=== PATIENT | female | born 1970 | race Caucasian/White ===

== ENCOUNTER 2021-11-11 10:33 | Outpatient (CLI) | payer OTHER, SELFPAY ==
--- NOTE | 2021-11-11 10:30 | RT.EKG_ITS ---
APPROVED REPORT Exam: Resting ECG Reason for Exam: PALPACATIONS Patient Location: O HR:81 bpm ECG Measurements Heart Rate 81 AXIS DE 150 P 54 QRSd 96 QRS 34 QT 371 T 56 QTc 430 Conclusion Sinus rhythm...normal P axis, V-rate 60- 99 Normal Electrocardiogram
== END 2021-11-11 10:34 | disposition home or self-care (01) ==
PROVIDERS: Visit Provider Nurse Practitioner Family
DX: R07.9 Chest pain, unspecified (principal); R00.2 Palpitations
CPT/HCPCS: 93010

== ENCOUNTER 2021-11-11 16:06 | Outpatient (REF) | payer OTHER, SELFPAY ==
[2021-11-11 16:58] LABS: HCT 44.2 % (36.0-46.0); MCHC 31.7 % (32.0-36.0); MCV 91.5 fL (80-95); MPV 11.4 fL (8.0-11.0); Platelet Count 378 10^3/uL (130-400); RBC 4.83 10^6/uL (3.93-5.22); RDW 13.2 % (11.7-14.6); RDW-SD 44.2 fL; WBC 12.87 10^3/uL (4.4-10.8)
[2021-11-11 17:16] LABS: ALT 33 U/L (14-59); AST 17 U/L (15-37); Alkaline Phosphatase 70 U/L (46-116); BUN 15 mg/dL (7-18); Bilirubin, Total 0.3 mg/dL (0.2-1.0); CREATININE 0.7 mg/dL (0.55-1.02); Calcium 9.2 mg/dL (8.5-10.1); Chloride 106 mmol/L (98-107); Cholesterol 287 mg/dL (<200); Glucose 74 mg/dL (74-106); HDL Cholesterol 40 mg/dL (40-60); Potassium 4.4 mmol/L (3.5-5.1); Sodium 142 mmol/L (136-145); Total Protein 7.3 g/dL (6.4-8.2); Triglyceride 574 mg/dL (<150)
[2021-11-11 17:33] LABS: Hemoglobin A1C 6.3 % (<5.7)
[2021-11-11 19:10] LABS: LDL CHOLESTEROL 165 mg/dL (<100)
== END 2021-11-11 16:07 | disposition home or self-care (01) ==
LOC: LBN 16:06
PROVIDERS: Visit Provider Nurse Practitioner Family
DX: R00.2 Palpitations (principal); I10 Essential (primary) hypertension
CPT/HCPCS: 80053; 80061; 83721; 85027; 83036; 84443

== ENCOUNTER 2021-12-01 04:01 | Outpatient (RCR) | payer OTHER, SELFPAY ==
--- NOTE | 2021-12-01 16:30 | HOLTER_ITS ---
APPROVED REPORT Conclusion This is a 48-hour Holter monitor ordered for palpitations Predominant rhythm was sinus with an average heart rate of 84. Minimum was 56, maximum 117 There were very rare atrial and ventricular ectopic beats There is no atrial fibrillation, no high-grade AV block, no pauses greater than 3 seconds No patient symptoms were reported
== END 2021-12-07 23:59 | disposition home or self-care (01) ==
LOC: RT 04:01
PROVIDERS: Visit Provider Nurse Practitioner Family
DX: R00.2 Palpitations (principal)
CPT/HCPCS: 93225; 93226

== ENCOUNTER → 2022-02-07 03:00 | Outpatient (CLI) | payer OTHER, SELFPAY ==
--- NOTE | 2022-02-07 09:00 | DI.US_ITS ---
Exam(s) US HERNIA US PELVIS TRANSVAGINAL EXAM: US PELVIS TRANSVAGINAL CLINICAL HISTORY: POSTMENOPAUSAL BLEEDING, N95.0 TECHNIQUE: Ultrasound performed using standard protocol. COMPARISON: US US HERNIA from 02/07/2022 FINDINGS: Pelvic ultrasound was performed trans abdominally and transvaginally. Uterus measures 8.6 x 3.1 x 4 cm in diameter. There is an apparent 8 millimeter anterior midbody uterine fibroid. Endometrial str ipe is 3-4 millimeters in thickness and appears homogeneous. Limited scanning of the kidneys is unremarkable. The ovaries are nonvisualized. No free fluid in the cul-de-sac. The anterior abdominal wall was also scanned for suspected ventral and or umbilical hernia. There is no evidence of hernia in the region surveyed. IMPRESSION: Small uterine fibroid, otherwise negative pelvic ultrasound, ovaries nonvisualized. No evidence of abdominal wall hernia. DATA REPOSITORY:
--- NOTE | 2022-02-07 10:34 | DI.MAMMO_ITS ---
Exam(s) MAMMO SCREENING EXAM: MAMMO SCREENING CLINICAL HISTORY: SCREENING, Z12.39, Z12.31 TECHNIQUE: Mammograms were interpreted according to the usual protocol including computer analysis w [facility] CAD system, tomosynthesis and C-view imaging. COMPARISON: FINDINGS: No prior imaging available for comparison. The breasts are of moderate density with fairly symmetric al distribution of fibroglandular tissue. No dominant mass or clumped microcalcification is identifi ed in either breast. IMPRESSION: No specific evidence of malignancy at this time. Routine screening examinations are suggested at yea rly intervals in this age group according to the ACS ACR guidelines. BI-RADS Category 1 - Negative Breast Density - Category B - Scattered areas of fibroglandular density
== END ==
PROVIDERS: PCP Nurse Practitioner Family; Visit Provider Nurse Practitioner Family
DX: Z12.31 Encounter for screening mammogram for malignant neoplasm of breast (principal); N95.0 Postmenopausal bleeding; D25.9 Leiomyoma of uterus, unspecified; M62.08 Separation of muscle (nontraumatic), other site; R10.2 Pelvic and perineal pain
CPT/HCPCS: 76857; 77063; 77067; 76830; 76856

== ENCOUNTER 2022-02-07 03:54 | Outpatient (CLI) | payer OTHER, SELFPAY ==
[2022-02-07 10:56] LABS: Calculated LDL 122 mg/dL (<100); Cholesterol 235 mg/dL (<200); HDL Cholesterol 42 mg/dL (40-60); Triglyceride 359 mg/dL (<150)
== END 2022-02-07 03:55 | disposition home or self-care (01) ==
LOC: LBO 03:54
PROVIDERS: PCP Nurse Practitioner Family; Visit Provider Nurse Practitioner Family
DX: E78.5 Hyperlipidemia, unspecified (principal)
CPT/HCPCS: 36415; 80061

== ENCOUNTER 2022-04-23 14:51 | Outpatient (REF) | payer OTHER, SELFPAY ==
--- NOTE | 2022-04-23 14:15 | ENDOMET_PTH ---
PATIENT: Arti Dinh LOC: [facility] U#:[id number] AGE/SX: 52/F ROOM: RE04/23/[address]: Traci Rey : 1970 BED: DIS: 04/23/2022 SPEC #: [id number] RECD: 04/24/22 09:11 STATUS: SUKHWINDER REQ #: [id number] ROMEL: 04/23/22 14:[address]: Traci Rey DEPT: Surgical Specimen RECD BY: Madeline Estrada ENTERED: 04/24/22 09:13 SP TYPE: Endomet OTHR DR: Jada Cheng Tissues: 1 - ENDOMETRIUM BX/CURRETTE Procedures: GROSS AND MICRO LEVEL 4 Comments: [id number]
== END 2022-04-23 14:52 | disposition home or self-care (01) ==
LOC: LBN 14:51
PROVIDERS: PCP Nurse Practitioner Family; Visit Provider Obstetrics & Gynecology Gynecology
DX: N85.8 Other specified noninflammatory disorders of uterus (principal)
CPT/HCPCS: 88305

== ENCOUNTER 2023-02-08 08:13 | Day surgery (SDC) | payer OTHER, SELFPAY ==
--- NOTE | 2023-02-07 19:28 | W.PM.DSUDISC ---
Date of service: 02/08/23 Time of Service: 10:42 Discharge Plan Disposition Patient Disposition: Home Condition: Good Discharge Details Reason For Visit: Screening colonoscopy Attending Provider: Bharat Schmitz Primary Care Provider: Jada Cheng Home Meds and New Rx's Prescriptions: Continued lisinopril-hydrochlorothiazide 20-25 mg tablet 1 tab PO DAILY Qty: 30 0RF Rx Instructions: Take 1 tab daily rosuvastatin 5 mg tablet 5 mg PO HS Discontinued bisacodyl [Dulcolax (bisacodyl)] 5 mg tablet,delayed release (DR/EC) 5 mg PO ONCE Qty: 4 0RF Rx Instructions: Take per colonoscopy instructions provided by ordering providers office polyethylene glycol 3350 17 gram/dose powder 17 g PO ONCE Qty: 238 0RF Rx Instructions: Take per colonoscopy instructions provided by ordering providers office Discharge Instructions Instructions: Colorectal Polyps (GEN) Additional Instructions: Arti, we were able to complete your colonoscopy today without any problems. The quality of your prep was outstanding. We had great visualization. I did find 1 small polyp in your rectum. I removed this completely. Otherwise your colonoscopy was totally normal. I will be in touch when I have the results of the pathology report with my recommendations. 1. If tolerated, consume a soft, low fiber diet for 1-2 days. 2. Do not drive, drink alcohol, operate machinery, make critical decisions, or do activities that require coordination or balance for 24 hours. 3. Because air was put into your colon during the procedure, expelling air from your rectum (passing gas or farting) is normal. 4. You may not have a bowel movement for 1-3 days because of the colonoscopy prep. This is normal. 5. Go directly to the emergency room if you notice any of the following: Develop chills (warm to touch), or if you have a thermometer and your temperature is above 101 Difficulty breathing or difficultly swallowing Persistent vomiting Severe abdominal pain, other than gas cramps Severe chest pain Black, tarry stools Any bleeding ? exceeding one tablespoon 6. Call your physician if the site where your intravenous was started becomes red, swollen, painful, and warm to touch. 7. Your physician has reviewed your pre-procedure medications. Please continue to take those medications as previously ordered. You will be given specific information/education regarding any changes to your medications before leaving. Activity:: Activity as Tolerated Diet:: As Tolerated Discharge Orders Discharge Orders: Discharge Order (Routine); Ordered 02/07/23 Ordered By: Bharat Schmitz DS: Diagnosis Discharge Diagnosis (1) Screening for colon cancer: Status: Acute Asessment and Plan: I will follow-up on polypectomy results
--- NOTE | 2023-02-07 19:29 | W.COLOREPORT ---
Date of service: 02/08/23 Time of Service: 10:43 Colonoscopy Report Date of procedure: 02/08/23 Pre-op diagnosis general: Screening colonoscopy Post-op diagnosis procedure note: other (Rectal polyp) Procedure: Colonoscopy with polypectomy Surgeon: Bharat Schmitz Anesthesia Type: General:No Airway Estimated blood loss (mL): 5 Pathology: other (Rectal polyp) Complications: None Disposition: same day Indications: Arti is a 52-year-old woman who needs a screening colonoscopy Prep: Miralax/Dulcolax Procedure Start Time: 10:17 Procedure End Time: 10:29 Retraction Time: 8 Findings: Single 0.25 cm rectal polyp Procedure Description: After the induction of monitored anesthetic care, and with the patient in left lateral decubitus position, I began by performing an external anorectal exam.? Perineum and skin were normal, as was the anal verge.? There was no evidence of external hemorrhoids.? Next, I performed a digital rectal exam.? I did not appreciate any abnormal findings.? Next, I advanced a colonoscope into the rectal vault.? I performed retroflexion.? There was mild perianal inflammation.? Using insufflation, I then advanced the colonoscope beyond the rectal folds and into the sigmoid colon before advancing towards the cecum.? The quality of the prep was outstanding.? The scope was noted to be in the cecum by identification of the ileocecal valve and appendiceal orifice.? I then began withdrawing the colonoscope using repeated irrigation as necessary for full evaluation of the colonic mucosa. ?Once the scope was withdrawn to the level of the rectum, great care was taken to examine portions of the rectal folds.? Finally, the scope was withdrawn and the patient was brought to the same-day surgery recovery unit as the anesthetic wore off. ?The findings and instructions were shared with the patient prior to discharge.
[2023-02-08 08:39] VITALS: BP 131/77; PULSE 70; RESP 17; TEMP 36.2; O2SAT 97
[2023-02-08] MEDS: Lactated Ringers 1,000 ML 80 ML IV (08:54)
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
[2023-02-08 09:45] VITALS: BMI 46.5
--- NOTE | 2023-02-08 10:20 | BOWEL_PTH ---
PATIENT: Arti Dinh LOC: [facility] U#:[id number] AGE/SX: 52/F ROOM: RE02/08/[address]: Bharat Schmitz MD : 1970 BED: DIS: 02/08/2023 SPEC #: [id number] RECD: 02/08/23 11:41 STATUS: SUKHWINDER RE #: [id number] ROMEL: 02/08/23 10:[address]: Bharat Schmitz DEPT: Surgical Specimen RECD BY: Idalia Romero ENTERED: 02/08/23 11:41 SP TYPE: Bowel OTHR DR: Jada Cheng Tissues: 1 - BIOPSY BOWEL Procedures: GROSS AND MICRO LEVEL 4 Comments: [id number]
[2023-02-08 10:37] VITALS: BP 99/58; PULSE 69; RESP 18; TEMP 36.6; O2SAT 93
--- NOTE | 2023-02-08 10:43 | W.ANESPOSTOP ---
Postoperative Evaluation Date, Time and Location Date Performed: 02/08/23 Time Performed: 10:43 Patient Location: Day Surgery Unit Vital Signs Most Recent Imported Vital Signs: Most Recent Vital Signs Temp Pulse Resp BP Pulse Ox 36.6 C 69 18 99/58 L 93 02/08/23 10:37 02/08/23 10:37 02/08/23 10:37 02/08/23 10:37 02/08/23 10:37 Pain Score Most Recent Pain Score: Most Recent Pain Score Pain Level 0 02/08/23 10:37 Assessment Mental Status: Awake (Alert & Oriented to Patient Baseline) Airway and Respiratory Function: Patent airway with normal (patient baseline) respiratory exam Cardiovascular Function: Hemodynamically Stable Hydration Status: Adequately Hydrated Nausea & Vomiting: No Nausea or Vomiting Pain: Pt. Denies Any Pain Peripheral Nerve Block: Patient did not receive a nerve block
[2023-02-08 11:00] VITALS: BP 141/73; PULSE 78; RESP 18; TEMP 35.8; O2SAT 97
== END 2023-02-08 11:20 | disposition home or self-care (01) ==
PROVIDERS: PCP Nurse Practitioner Family; Visit Provider Surgery
PROC: 0DJD8ZZ Inspection of Lower Intestinal Tract, Via Natural or Artificial Opening Endoscopic (ICD-10-PCS; CPT 45378; principal; 2023-02-08 10:00)
DX: Z12.11 Encounter for screening for malignant neoplasm of colon (principal); D12.8 Benign neoplasm of rectum
CPT/HCPCS: 45380; 88305

== ENCOUNTER 2023-03-08 15:44 | Outpatient (REF) | payer OTHER, SELFPAY ==
--- NOTE | 2023-03-08 09:15 | PAPFT_PTH ---
PATIENT: Arti Dinh LOC: [facility]#:[id number] AGE/SX: 52/F ROOM: RE03/08/[address]: Jada Cheng : 1970 BED: DIS: 03/08/2023 SPEC #: [id number] RECD: 03/14/23 13:39 STATUS: SUKHWINDER REQ #: [id number] ROMEL: 03/08/23 09:[address]: Jada Cheng DEPT: [facility] Cytology RECD BY: Idalia Romero Tissues: 1 - CX/ENDOCX FOR PAP SMEARS Procedures: PAP THIN PREP/UVM Screening HPV DNA PROBE Comments: [id number]
[2023-03-08 19:16] LABS: ALT 34 U/L (14-59); AST 26 U/L (15-37); Alkaline Phosphatase 64 U/L (46-116); BUN 17 mg/dL (7-18); Bilirubin, Total 0.4 mg/dL (0.2-1.0); CREATININE 0.7 mg/dL (0.55-1.02); Calcium 9.3 mg/dL (8.5-10.1); Calculated LDL 94 mg/dL (<100); Chloride 104 mmol/L (98-107); Cholesterol 199 mg/dL (<200); Glucose 105 mg/dL (74-106); HDL Cholesterol 45 mg/dL (40-60); Potassium 4.1 mmol/L (3.5-5.1); Sodium 141 mmol/L (136-145); Total Protein 7.8 g/dL (6.4-8.2); Triglyceride 301 mg/dL (<150)
[2023-03-08 19:40] LABS: Vitamin D 25 Total 18.6 ng/mL (30-100)
[2023-03-11 11:36] LABS: Hepatitis C Ab w Rflx HCV PCR Negative (Negative)
[2023-03-11 12:10] LABS: HIV-1/2 Ag & Ab Screen Negative (Negative)
== END 2023-03-08 15:45 | disposition home or self-care (01) ==
LOC: NCHCN 15:44
PROVIDERS: PCP Nurse Practitioner Family; Visit Provider Nurse Practitioner Family
DX: I10 Essential (primary) hypertension (principal); E78.5 Hyperlipidemia, unspecified; R73.03 Prediabetes
CPT/HCPCS: 80053; 80061; 82306; 86803; 87389; 88142; 83036; 87624

== ENCOUNTER 2023-05-14 16:51 | Emergency (ER) | payer OTHER, SELFPAY ==
--- NOTE | 2023-05-14 16:45 | RT.EKG_ITS ---
APPROVED REPORT Exam: Resting ECG Reason for Exam: ABD pain/diaphoresis Patient Location: E HR:81 bpm ECG Measurements Heart Rate 81 AXIS WA 144 P 45 QRSd 103 QRS 25 QT 380 T 31 QTc 442 Conclusion Sinus rhythm.. V-rate 60- [address] segment or T wave abnormalities to suggest
[2023-05-14 16:52] VITALS: BP 118/57; PULSE 83; RESP 18; TEMP 38.1; O2SAT 96
--- NOTE | 2023-05-14 17:00 | DI.RAD_ITS ---
Exam(s) XR CHEST 2V PA LATERAL EXAM: XR CHEST 2V PA LATERAL CLINICAL HISTORY: fever cough TECHNIQUE: 2D digital imaging was performed of the chest. Two images were obtained. PA and lateral views were obtained. COMPARISON: CT CT CHEST LUNG CANCER SCREEN from 03/14/2022 FINDINGS: MEDIASTINUM: Normal. HEART: Normal. PULMONARY VASCULATURE: Normal. LUNGS: Clear. PLEURAL SPACE: No pleural effusion or pneumothorax. BONE:Within normal limits for the patient's age. OTHER FINDINGS:Normal. IMPRESSION: No acute pulmonary findings. DATA REPOSITORY: RADIATION DOSE DELIVERED:
[2023-05-14] MEDS: Normal Saline 1,000 ML 1000 ML IV (17:27)
[2023-05-14] MEDS: Acetaminophen 500 MG TAB 1000 MG PO (17:27)
[2023-05-14 17:34] LABS: Abs Immature Grans 0.03 10^3/uL (0.0-0.06); Absolute Basophil Count 0.03 10^3/uL (0.0-0.2); Absolute Eosinophil Count 0.06 10^3/uL (0.0-0.7); Absolute Lymphocyte Count 1.94 10^3/uL (1.2-3.4); Basophils % 0.3; Eosinophils % 0.5; HCT 37.1 % (36.0-46.0); HGB 12.4 g/dL (11.2-15.7); Immature Grans % 0.3; Lymphocytes % 17.5; MCH 28.9 pg (27.0-33.0); MCHC 33.4 % (32.0-36.0); MCV 87 fL (80-95); MPV 10.2 fL (8.0-11.0); Monocytes % 6.8; Neutrophils % 74.6; Platelet Count 311 10^3/uL (130-400); RBC 4.29 10^6/uL (3.93-5.22); RDW 13.3 % (11.7-14.6); RDW-SD 41.4 fL; WBC 11.11 10^3/uL (4.4-10.8)
[2023-05-14 17:35] LABS: Absolute Monocyte Count 0.76 10^3/uL (0.1-0.8); Absolute Neutrophil Count 8.29 10^3/uL (1.2-6.7)
[2023-05-14 17:46] LABS: ALT 23 U/L (14-59); AST 16 U/L (15-37); Albumin 3.2 g/dL (3.4-5.0); Alkaline Phosphatase 86 U/L (46-116); Anion Gap 12.8 mmol/L (3-11); BUN 13 mg/dL (7-18); Bilirubin, Total 0.7 mg/dL (0.2-1.0); CO2 24.2 mmol/L (21.0-32.0); CREATININE 0.8 mg/dL (0.55-1.02); Calcium 8.9 mg/dL (8.5-10.1); Chloride 96 mmol/L (98-107); Estimated GFR 88.05 (mL/min/1.73m2); Glucose 120 mg/dL (74-106); Potassium 3.2 mmol/L (3.5-5.1); Sodium 133 mmol/L (136-145)
[2023-05-14 18:18] LABS: COVID-19 PCR Negative (Negative); Influenza A PCR Negative (Negative); Influenza B PCR Negative (Negative); RSV PCR Negative (Negative)
[2023-05-14 18:21] LABS: Source Nasopharynx
--- NOTE | 2023-05-14 19:39 | DI.VRAD_ITS ---
PROCEDURE INFORMATION: Exam: XR Chest Exam date and time: 05/14/2023 6:54 PM Age: 53 years old Clinical indication: Fever, cough TECHNIQUE: Imaging protocol: Radiologic exam of the chest. Views: 2 views. COMPARISON: CT CHEST LUNG CANCER SCREEN 03/14/2022 10:26 AM FINDINGS: Lungs: No alveolar infiltrate. Pleural spaces: No pleural fluid collection. No pneumothorax. Heart/Mediastinum: Normal heart size. Bones/joints: Unremarkable for patient age. IMPRESSION: No active pulmonary disease. Dictated and Authenticated by: Ant Corona MD. Ordering:DONNA Edwards MD
[2023-05-14] MEDS: Ketorolac 15 MG/ML VIAL IVP (19:43)
--- NOTE | 2023-05-14 19:45 | ED.GENADUL_ITS ---
Discharge Plan Disposition Patient Disposition: Home Condition: Good Discharge Details Clinical Impression: Urinary tract infection Primary Care Provider: Jada Cheng ED Provider: Grace Deleon Home Meds and New Rx's Prescriptions: New cephalexin 500 mg capsule 500 mg PO BID Qty: 14 0RF cephalexin 500 mg capsule 500 mg PO BID Qty: 2 0RF No Action lisinopril-hydrochlorothiazide 20-25 mg tablet 1 tab PO DAILY Qty: 30 0RF Rx Instructions: Take 1 tab daily rosuvastatin 5 mg tablet 5 mg PO HS Discharge Instructions Instructions: Urinary Tract Infection in Women (ED) Additional Instructions: Take the antibiotic twice a day for the next 10 days. Call your primary doctor tomorrow to schedule an appointment to follow up on your visit today. Return to the emergency department for new or worsening symptoms including fever that does not respond to home medication, feeling like you are going to pass out, or if you have any other concerns. Referrals: Jada Cheng [Primary Care Provider] - Discharge Data Discharge Date/Time-TO BE ENTERED AT DEPARTURE: 05/14/23 20:12 Medical Decision Making 53yo F with HTN, HLD, presenting for URI symptoms and general malaise for 4-5 days. Home covid negative. No chest pain or difficulty breathing. Vital signs reassuring, slightly febrile to 38.1 but not tachycardiac. Not septic. Physical exam reassuring with clear lungs and no increased work of breathing. CXR independently reviewed, no focal pneumonia on my view, radiology read below. EKG NSR, appropriate intervals, no ST segment or T wave abnormalities to suggest occlusive IL. Covid/flu negative. Labs reviewed as below, CBC with very slight leukocytosis at 11.1, CMP with mild hyponatremia and hypokalemia (133 & 3.2 respectively), unknown chronicity, normal bicarb, borderline elevated gap at 12.8 without acidosis. UA with + ketones (likely etiology of borderline elevated gap), contaminated and difficult to interpret though somewhat suggestive of UTI. Repeat vital signs remain reassuring. No CVA tenderness to suggest pyeloneprhitis. No urinary symptoms. Suspect most likely contamination however with fever out of abundance of caution will treat. Discharged home on 10 day course of keflex; discharge instructions and return precautions were reviewed with patient who verbalized understanding. All questions were answered and she is in full agreement with the plan. Imaging Data Radiologic Study: Imaging: X-Ray Radiologist's impression: IMPRESSION: No active pulmonary disease. Lab Data Lab results reviewed: Yes I reviewed the patient's lab results. Labs: Laboratory Tests Range/Units 05/14/23 05/14/23 05/14/23 17:17 17:17 17:19 WBC (4.4-10.8) 10^3/uL 11.11 H RBC (3.93-5.22) 10^6/uL 4.29 Hgb (11.2-15.7) g/dL 12.4 Hct (36.0-46.0) % 37.1 MCV (80-95) fL 87 MCH (27.0-33.0) pg 28.9 MCHC (32.0-36.0) % 33.4 RDW (11.7-14.6) % 13.3 Plt Count (130-400) 10^3/uL 311 MPV (8.0-11.0) fL 10.2 Immature Gran % 0.3 Neutrophils % 74.6 Lymphocytes % 17.5 Monocytes % 6.8 Eosinophils % 0.5 Basophils % 0.3 Nucleated RBC % (0.0-0.3) % 0.0 Absolute Neutrophils (1.2-6.7) 10^3/uL 8.29 H Absolute Lymphocytes (1.2-3.4) 10^3/uL 1.94 Absolute Monocytes (0.1-0.8) 10^3/uL 0.76 Absolute Eosinophils (0.0-0.7) 10^3/uL 0.06 Absolute Basophils (0.0-0.2) 10^3/uL 0.03 Sodium (136-145) mmol/L 133 L Potassium (3.5-5.1) mmol/L 3.2 L Chloride (98-107) mmol/L 96 L Carbon Dioxide (21.0-32.0) mmol/L 24.2 Anion Gap (3-11) mmol/L 12.8 H BUN (7-18) mg/dL 13 Creatinine (0.55-1.02) mg/dL 0.8 Est GFR (CKD-EPI 2020) (mL/min/1.73m2) 88.05 Glucose (74-106) mg/dL 120 H Calcium (8.5-10.1) mg/dL 8.9 Total Bilirubin (0.2-1.0) mg/dL 0.7 AST (15-37) U/L 16 ALT (14-59) U/L 23 Alkaline Phosphatase (46-116) U/L 86 Total Protein (6.4-8.2) g/dL 8.0 Albumin (3.4-5.0) g/dL 3.2 L Urine Color (Yellow) Urine Clarity (Clear) Urine pH (5-8) Ur Specific [place] (1.005-1.025) Urine Protein (Negative) mg/dL Urine Ketones (Negative) mg/dL Urine Blood (Negative) Urine Nitrite (Negative) Urine Bilirubin (Negative) Urine Urobilinogen (Up to 0.2) mg/dL Ur Leukocyte Esterase (Negative) Urine RBC (0-2) HPF Urine WBC (0-5) HPF Ur Epithelial Cells (Negative) HPF Urine Crystals (Negative) HPF Urine Bacteria (Negative) HPF Urine Casts (Negative) LPF Urine Mucus (Negative) Ur Culture Indicated? Urine Glucose (Negative) mg/dL COVID-19 Source Nasopharynx SARS-CoV-2 (PCR) (Negative) Negative Influenza Type A (PCR) (Negative) Negative Influenza Type B (PCR) (Negative) Negative RSV (PCR) (Negative) Negative Range/Units 05/14/23 19:40 WBC (4.4-10.8) 10^3/uL RBC (3.93-5.22) 10^6/uL Hgb (11.2-15.7) g/dL Hct (36.0-46.0) % MCV (80-95) fL MCH (27.0-33.0) pg MCHC (32.0-36.0) % RDW (11.7-14.6) % Plt Count (130-400) 10^3/uL MPV (8.0-11.0) fL Immature Gran % Neutrophils % Lymphocytes % Monocytes % Eosinophils % Basophils % Nucleated RBC % (0.0-0.3) % Absolute Neutrophils (1.2-6.7) 10^3/uL Absolute Lymphocytes (1.2-3.4) 10^3/uL Absolute Monocytes (0.1-0.8) 10^3/uL Absolute Eosinophils (0.0-0.7) 10^3/uL Absolute Basophils (0.0-0.2) 10^3/uL Sodium (136-145) mmol/L Potassium (3.5-5.1) mmol/L Chloride (98-107) mmol/L Carbon Dioxide (21.0-32.0) mmol/L Anion Gap (3-11) mmol/L BUN (7-18) mg/dL Creatinine (0.55-1.02) mg/dL Est GFR (CKD-EPI 2020) (mL/min/1.73m2) Glucose (74-106) mg/dL Calcium (8.5-10.1) mg/dL Total Bilirubin (0.2-1.0) mg/dL AST (15-37) U/L ALT (14-59) U/L Alkaline Phosphatase (46-116) U/L Total Protein (6.4-8.2) g/dL Albumin (3.4-5.0) g/dL Urine Color (Yellow) Yellow Urine Clarity (Clear) Clear Urine pH (5-8) 5.5 Ur Specific [place] (1.005-1.025) 1.020 Urine Protein (Negative) mg/dL 30 H Urine Ketones (Negative) mg/dL 40 H Urine Blood (Negative) Moderate H Urine Nitrite (Negative) Positive H Urine Bilirubin (Negative) Negative Urine Urobilinogen (Up to 0.2) mg/dL 1.0 H Ur Leukocyte Esterase (Negative) Small H Urine RBC (0-2) HPF 0-2 Urine WBC (0-5) HPF 10-20 H Ur Epithelial Cells (Negative) HPF Moderate Urine Crystals (Negative) HPF Negative Urine Bacteria (Negative) HPF Many Urine Casts (Negative) LPF Negative Urine Mucus (Negative) Negative Ur Culture Indicated? No/Sq. Contamination Urine Glucose (Negative) mg/dL Negative COVID-19 Source SARS-CoV-2 (PCR) (Negative) Influenza Type A (PCR) (Negative) Influenza Type B (PCR) (Negative) RSV (PCR) (Negative) HPI General Mode of arrival: ambulatory . Date/Time Provider Initiated Documentation: 05/14/23 16:56 . Limitations to Documentation: no limitations . Information obtained by: patient . HPI Narrative: 53yo F with HTN, HLD, presenting for URI symptoms and general malaise for 4-5 days. Has had chills, myalagias, cough, and nasal congestion. Home covid tests negative. No chest pain or difficulty breathing. No fevers at home. Symptoms unrelieved by home sudafed and ibuprofen. She is otherwise in her usual state of health with no headache, lightheadedness, presyncope, abdominal pain, nausea, vomiting, dysuria, hematuria, or other concerns. Related Data Home Medications Medication Instructions Recorded Confirmed lisinopril 20 1 tab PO DAILY #30 tabs 11/25/21 05/14/23 mg-hydrochlorothiazide 25 mg tablet rosuvastatin 5 mg tablet 5 mg PO HS 06/21/22 05/14/23 cephalexin 500 mg capsule 500 mg PO BID #14 caps 05/14/23 cephalexin 500 mg capsule 500 mg PO BID #2 caps 05/15/23 Previous Rx's Medication Instructions Recorded lisinopril 20 1 tab PO DAILY #30 tabs 11/25/21 mg-hydrochlorothiazide 25 mg tablet cephalexin 500 mg capsule 500 mg PO BID #14 caps 05/14/23 cephalexin 500 mg capsule 500 mg PO BID #2 caps 05/15/23 Allergies Allergy/AdvReac Type Severity Reaction Status Date / Time metronidazole [From Flagyl] Allergy Intermediate Hives Verified 05/14/23 15:22 General Stated Complaint: GenMedical SLIM: 3 Review of Systems Narrative: see HPI PFSH All Active Problems (Updated 05/14/23 @ 19:56 by Grace Deleon MD) Urinary tract infection (Acute) Tubular adenoma (Acute) Screening for colon cancer (Acute) Hypertension (Chronic) GERD (gastroesophageal reflux disease) (Chronic) Diastasis recti (Acute) History of endometrial biopsy (Acute) 04/2022 Postmenopausal bleeding (Acute) 2021. 2 episodes after 1 year of amenorrhea. 02/2022 normal pelvic ultrasound. ES 3-4 mm. 04/10/2022 endometrial biopsy: Normal inactive endometrium. No further testing required Hyperlipemia (Acute) Medical History Inguinal pain Tobacco use Surgical History History of colonoscopy with polypectomy (~02/2023) History of loop electrical excision procedure (LEEP) (~2002) Social History Smoking/Tobacco Use Status: Current every day Tobacco Type: cigarettes Smoking packs per day: 0.5 Smoking cigarettes per day: 10.0 Smoking risk assessment performed?: Yes Alcohol Intake: current Alcohol Intake frequency: holidays/special occasions only Drug use: Never Substance use type: does not use Do you feel safe at home: Yes Do you feel safe in your relationship?: Yes History History 4 Para 1 Hx # Term Pregnancies 1 Multiple births Hx # Pregnancies Ectopic pregnancies AB induced Hx Number of Living Children 1 AB spontaneous Exam Narrative Exam Narrative: General: Alert, in no acute distress. Head: Normocephalic, atraumatic Neck: Trachea midline, Neck supple. ENT: MMM. No oropharygeal lesions or exudate. Cardiac: RRR, no murmurs appreciated Resp: No respiratory distress. CTAB. Abd: Soft, non-distended, nontender : No suprapubic tenderness. No CVA tenderness. Extremities: No deformities. No peripheral edema. Neurologic: GCS 15. Moves all extremities freely against gravity Course Vital Signs Vital signs: Vital Signs Temperature 38.1 C H 05/14/23 16:52 Pulse 83 05/14/23 16:52 Respiratory Rate 18 05/14/23 16:52 Blood Pressure 118/57 L 05/14/23 16:52 Pulse Oximetry 96 05/14/23 16:52 Temperature 38.1 C H 05/14/23 16:52 Temperature Source Oral 05/14/23 16:52 Pulse 83 05/14/23 16:52 Respiratory Rate 18 05/14/23 16:52 Respiratory Effort Non-Labored, Short of Breath 05/14/23 16:58 Blood Pressure 118/57 L 05/14/23 16:52 Blood Pressure Position Sitting 05/14/23 16:52 Pulse Oximetry 96 05/14/23 16:52 Oxygen Delivery Method Room Air 05/14/23 16:52 Oxygen Flow Rate 0 05/14/23 16:52 Pain Level 5 05/14/23 16:52 Lab/Test Results Lab/Test Results: Laboratory Tests Range/Units 05/14/23 05/14/23 05/14/23 17:17 17:17 17:19 WBC (4.4-10.8) 10^3/uL 11.11 H RBC (3.93-5.22) 10^6/uL 4.29 Hgb (11.2-15.7) g/dL 12.4 Hct (36.0-46.0) % 37.1 MCV (80-95) fL 87 MCH (27.0-33.0) pg 28.9 MCHC (32.0-36.0) % 33.4 RDW (11.7-14.6) % 13.3 Plt Count (130-400) 10^3/uL 311 MPV (8.0-11.0) fL 10.2 Immature Gran % 0.3 Neutrophils % 74.6 Lymphocytes % 17.5 Monocytes % 6.8 Eosinophils % 0.5 Basophils % 0.3 Nucleated RBC % (0.0-0.3) % 0.0 Absolute Neutrophils (1.2-6.7) 10^3/uL 8.29 H Absolute Lymphocytes (1.2-3.4) 10^3/uL 1.94 Absolute Monocytes (0.1-0.8) 10^3/uL 0.76 Absolute Eosinophils (0.0-0.7) 10^3/uL 0.06 Absolute Basophils (0.0-0.2) 10^3/uL 0.03 Sodium (136-145) mmol/L 133 L Potassium (3.5-5.1) mmol/L 3.2 L Chloride (98-107) mmol/L 96 L Carbon Dioxide (21.0-32.0) mmol/L 24.2 Anion Gap (3-11) mmol/L 12.8 H BUN (7-18) mg/dL 13 Creatinine (0.55-1.02) mg/dL 0.8 Est GFR (CKD-EPI 2020) (mL/min/1.73m2) 88.05 Glucose (74-106) mg/dL 120 H Calcium (8.5-10.1) mg/dL 8.9 Total Bilirubin (0.2-1.0) mg/dL 0.7 AST (15-37) U/L 16 ALT (14-59) U/L 23 Alkaline Phosphatase (46-116) U/L 86 Total Protein (6.4-8.2) g/dL 8.0 Albumin (3.4-5.0) g/dL 3.2 L COVID-19 Source Nasopharynx SARS-CoV-2 (PCR) (Negative) Negative Influenza Type A (PCR) (Negative) Negative Influenza Type B (PCR) (Negative) Negative RSV (PCR) (Negative) Negative
[2023-05-14 19:50] LABS: Bilirubin Negative (Negative); Blood Moderate (Negative); Clarity Clear (Clear); Glucose Negative (Negative); Ketones 40 mg/dL (Negative); Leukocyte Esterase Small (Negative); Nitrite Positive (Negative); pH 5.5 (5-8)
[2023-05-14 19:58] LABS: Bacteria Many HPF (Negative); C & S Indicated? No/Sq. Contamination; Casts Negative LPF (Negative); Crystals Negative HPF (Negative); Epithelial Cells Moderate HPF (Negative); Mucus Negative (Negative); RBC 0-2 HPF (0-2)
[2023-05-14 20:09] VITALS: BP 139/55; PULSE 83; RESP 18; TEMP 37.6; O2SAT 97
[2023-05-14 20:10] VITALS: RESP 18
== END 2023-05-14 20:12 | disposition home or self-care (01) ==
PROVIDERS: Emergency Provider Student in an Organized Health Care Education/Training Program; PCP Nurse Practitioner Family
DX: N39.0 Urinary tract infection, site not specified (principal); R05.9 Cough, unspecified
CPT/HCPCS: 36415; 80053; 87637; 93005; 96361; 96374; 99284; 71046; 81003; 81015; 85025; 93010; J1885

== ENCOUNTER 2023-05-14 21:14 | Outpatient (REF) | payer OTHER, SELFPAY | END 2023-05-14 21:15 | disposition home or self-care (01) | LOC: LBN 21:14 | PROVIDERS: PCP Nurse Practitioner Family; Visit Provider Physician Assistant | DX: N39.0 Urinary tract infection, site not specified (principal) | CPT/HCPCS: 87077; 87086; 87186 ==

== ENCOUNTER 2023-06-06 16:49 | Outpatient (REF) | payer OTHER, SELFPAY ==
[2023-06-06 21:15] LABS: Bilirubin Negative (Negative); Blood Negative (Negative); Clarity Clear (Clear); Glucose Negative (Negative); Ketones Negative (Negative); Leukocyte Esterase Negative (Negative); Nitrite Negative (Negative); Urobilinogen 0.2 mg/dL (Up to 0.2); pH 5.5 (5-8)
== END 2023-06-06 16:50 | disposition home or self-care (01) ==
LOC: LBN 16:49
PROVIDERS: PCP Nurse Practitioner Family; Visit Provider Physician Assistant
DX: R39.15 Urgency of urination (principal); R35.0 Frequency of micturition
CPT/HCPCS: 81003

== ENCOUNTER 2024-04-16 21:53 | Outpatient (REF) | payer OTHER, SELFPAY ==
[2024-04-16 21:47] LABS: Hemoglobin A1C 6.3 % (<5.7)
--- OUTSIDE RECORDS SUMMARY | 2024-04-16 21:55 | XMS_ITS | Clinical Summary ---
Author Organization [facility] Address [address] [place] [address] Care Team Providers Care Human Resources Executive Assistant Name Role Phone YisselJoonJada Primary Care Provider Social History Tobacco Use Types Packs/Day Years Used Date Smoking Tobacco: Never Assessed Sex and Gender Information Value Date Recorded Sex Assigned at Not on file Gender Identity Not on file Sexual Orientation Not on file Plan of Treatment Health Maintenance Due Date Last Done Comments Hepatitis B Vaccine (1 of 3 - 19+ 3-dose series) 04/07 COVID-19 Vaccine ( season) 2023 Hepatitis C Screen Completed 03/08/2023 Procedures Procedure Name Priority Date/Time Associated Diagnosis Comments HEPATITIS C AB W REFLEX TO HCV RNA BY PCR Routine 03/08/2023 9:10 EDT from Last 3 Months or Most Recently Relevant to Health Maintenance Results * HEPATITIS C AB W REFLEX TO HCV RNA BY PCR (03/08/2023 9:10 EDT) Hep C Antibody Negative Negative 03/11/2023 11:[address] [facility] Blood VENOUS BLOOD / Unknown 03/08/2023 9:10 EDT 03/09/2023 21:26 EDT Provider Outr Resulting Lab CHEMISTRY & BLOOD GAS ORDERABLES [facility] [address] [place] [address] from Last 3 Months or Most Recently Relevant to Health Maintenance Care Teams Human Resources Executive Assistant Relationship Specialty Start Date End Date Jada Cheng [address] [place] [id number] PCP - General 04/09/22
--- OUTSIDE RECORDS SUMMARY | 2024-04-16 21:55 | XMS_ITS | Encounter Summary ---
Author Organization [facility] Address [address] [place] [address] Care Team Providers Care Art History Instructor Name Role Phone YisselJoonJada Primary Care Provider [phone] Encounter Details Date Type Department Care Team (Late st Contact Info) Description 04/24/2022 Lab Requisition [facility] Pathology & Laboratory Medicine - [address] [address] Traci Cohen MD [address] [place] [address] [id number] Encounter for other general examination Social History Tobacco Use Types Packs/Day Years Used Date Smoking Tobacco: Never Assessed Sex and Gender Information Value Date Recorded Sex Assigned at Not on file Gender Identity Not on file Sexual Orientation Not on file documented as of this encounter Plan of Treatment Not on file documented as of this encounter Procedures Procedure Name Priority Date/Time Associated Diagnosis Comments SURGICAL PATHOLOGY Today 04/23/2022 14 :15 EDT Encounter for other general examination documented in this encounter Results * SURGICAL PATHOLOGY (04/23/2022 14:15 EDT) Note to Patient The following pathology results have been interpreted by your pathologist and may be available to you before your health provider has had the opportunity to review them. Please allow time for your provider to receive these results and explore management options, if applicable. 04/26/2022 13:20 EDT [facility] Final Diagnosis A. ENDOMETRIUM, BIOPSY: - Atrophic endometrium. - Fragments of benign ectocervix. 04/26/2022 13:20 EDT [facility] Attestation There was significant resident/fellow involvement in the diagnostic evaluation of this case. By the signature below, the attending physician certifies that they have personally conducted a gross and/or microscopic examination of the described specimens and rendered or confirmed the above diagnosis. 04/26/2022 13:20 EDT [facility] at 1320 Clinical History Postmenopausal bleeding 04/26/2022 13:20 EDT [facility] Gross Description A. Received in formalin labelled with proper patient identification (initials D, L) and endometrial bx is an aggregate of blood-tinged mucus measuring 1.3 x 1.0 x 0.4 cm. Submitted entirely in A1. PAPI GIRALDO(ASCP) 04/24/2022 18:00 04/26/2022 13:20 EDT [facility] Resident/Arnold w: Adair Resendiz DO 04/26/2022 13:20 EDT [facility] Performing Lab [facility] 04/26/2022 13:20 EDT [facility] Scanned Images 04/26/2022 13:20 EDT [facility] Tissue ENTIRE ENDOMETRIUM / Unknown 04/23/2022 14:15 EDT 04/24/2022 17:11 EDT Traci Cohen MD PATHOLOGY ORDERABLES [facility] [address] [place] [address] documented in this encounter Visit Diagnoses Diagnosis Encounter for other general examination documented in this encounter Care Teams Art History Instructor Relationship Specialty Start Date End Date Jada Cheng [address] [place] [id number] PCP - General 04/09/22 documented as of this encounter
--- OUTSIDE RECORDS SUMMARY | 2024-04-16 21:55 | XMS_ITS | Referral Summary ---
Author Organization [facility] Address [address] [place] [address] Care Team Providers Care Sole Stainer Name Role Phone AishwaryalucyDomingo Jada Primary Care Provider Social History Tobacco Use Types Packs/Day Years Used Date Smoking Tobacco: Never Assessed Sex and Gender Information Value Date Recorded Sex Assigned at Not on file Gender Identity Not on file Sexual Orientation Not on file Plan of Treatment Not on file Procedures Procedure Name Priority Date/Time Associated Diagnosis Comments HEPATITIS C AB W REFLEX TO HCV RNA BY PCR Routine 03/08/2023 9:10 EDT from Last 3 Months or Most Recently Relevant to Health Maintenance Results * HEPATITIS C AB W REFLEX TO HCV RNA BY PCR (03/08/2023 9:10 EDT) Hep C Antibody Negative Negative 03/11/2023 11:30 EDT [facility] Blood VENOUS BLOOD / Unknown 03/08/2023 9:10 EDT 03/09/2023 21:26 EDT Provider Outr Resulting Lab CHEMISTRY & BLOOD GAS ORDERABLES [facility] [address] [place] [address] from Last 3 Months or Most Recently Relevant to Health Maintenance Care Teams Sole Stainer Relationship Specialty Start Date End Date Jada Cheng [address] [place] [id number] PCP - General 04/09/22
--- OUTSIDE RECORDS SUMMARY | 2024-04-16 21:55 | XMS_ITS | Encounter Summary ---
Author Organization [facility] Address [address] [place] [address] Care Team Providers Care Nut Sifter Name Role Phone Jada Cheng Primary Care Provider [phone] Encounter Details Date Type Department Care Team (Late st Contact Info) Description 02/08/2023 Lab Requisition [facility] Pathology & Laboratory Medicine - [address] [address] Bharat Schmitz MD [address] [place] [address], [address] [place] [address] Encounter for screening for malignant neoplasm of colon Social History Tobacco Use Types Packs/Day Years Used Date Smoking Tobacco: Never Assessed Sex and Gender Information Value Date Recorded Sex Assigned at Not on file Gender Identity Not on file Sexual Orientation Not on file documented as of this encounter Plan of Treatment Not on file documented as of this encounter Procedures Procedure Name Priority Date/Time Associated Diagnosis Comments SURGICAL PATHOLOGY Today 02/08/2023 10 :20 EDT Encounter for screening for malignant neoplasm of colon documented in this encounter Results * SURGICAL PATHOLOGY (02/08/2023 10:20 EDT) Note to Patient The following pathology results have been interpreted by your pathologist and may be available to you before your health provider has had the opportunity to review them. Please allow time for your provider to receive these results and explore management options, if applicable. 02/11/2023 12:25 EDT [facility] Final Diagnosis A. RECTUM, POLYP, BIOPSY: - Tubular adenoma. 02/11/2023 12:25 EDT [facility] Attestation By the signature below, the attending physician certifies that they have 1) personally conducted a gross and/or microscopic examination of the described specimen(s), and/or personally interpreted the results of laboratory testing of the described specimen(s), and 2) personally rendered or confirmed the above diagnosis. 02/11/2023 12:25 [facility] at 1225 Clinical History Polyp 02/11/2023 12:25 EDT [facility] Gross Description A. Received in formalin labelled with proper patient identification (initials D, L) and 1. Rectal polyp are 2 mathis tissues (0.4 x 0.2 x 0.1 cm and 0.2 x 0.2 x 0.1 cm). Entirely submitted in A1. Karen Bagley 02/09/2023 13:14 02/11/2023 12:25 T [facility] Performing Lab [facility] 02/11/2023 12:25 T [facility] Scanned Images 02/11/2023 12:25 [facility] Tissue SPECIMEN FROM RECTUM / Unknown 02/08/2023 10:20 EDT 02/08/2023 17:04 EDT Bharat Schmitz MD PATHOLOGY ORDERABLES [facility] [address] [place] [address] documented in this encounter Visit Diagnoses Diagnosis Encounter for screening for malignant neoplasm of colon Special screening for malignant neoplasms, colon documented in this encounter Care Teams Nut Sifter Relationship Specialty Start Date End Date Jada Cheng [address] [place] [id number] PCP - General 04/09/22 documented as of this encounter
--- OUTSIDE RECORDS SUMMARY | 2024-04-16 21:55 | XMS_ITS | Encounter Summary ---
Author Organization [facility] Address [address] [place] [address] Care Team Providers Care Divine Healer Name Role Phone Jada Cheng Primary Care Provider [phone] Encounter Details Date Type Department Care Team (Late st Contact Info) Description 03/09/2023 Lab Requisition [facility] Pathology & Laboratory Medicine - [address] [id number] Outr Resulting Lab, Provider Social History Tobacco Use Types Packs/Day [...] RNA BY PCR Routine 03/08/2023 9:10 EDT documented in this encounter Results * HEPATITIS C AB W REFLEX TO HCV RNA BY PCR (03/08/2023 9:10 EDT) Hep C Antibody Negative Negative 03/11/2023 11:30 EDT [facility] Blood VENOUS BLOOD / Unknown 03/08/2023 9:10 EDT 03/09/2023 21:26 EDT Provider Outr Resulting Lab CHEMISTRY & BLOOD GAS ORDERABLES [facility] [address] [place] [address] documented in this encounter Visit Diagnoses Not on filedocumented in this encounter Care Teams Divine Healer Relationship Specialty Start Date End Date Jada Cheng [address] [place] [id number] PCP - General 04/09/22 documented as of this encounter
--- OUTSIDE RECORDS SUMMARY | 2024-04-16 21:55 | XMS_ITS | Encounter Summary ---
Author Organization [facility] Address [address] [place] [address] Care Team Providers Care Observer [employer] Name Role Phone Jada Cheng Primary Care Provider Encounter Details Date Type Department Care Team (Latest Contact Info) Description 03/15/2023 Lab Requisition [facility] Pathology & Laboratory Medicine - [facility] [address] [place] [address] Jada Cheng [address] [place], [place] [id number] Encounter for gynecological examination (general) (routine) without abnormal findings Social History Tobacco Use Types Packs/Day Years Used Date Smoking Tobacco: Never Assessed Sex and Gender Information Value Date Recorded Sex Assigned at Not on file Gender Identity Not on file Sexual Orientation Not on file documented as of this encounter Plan of Treatment Not on file documented as of this encounter Procedures Procedure Name Priority Date/Time Associated Diagnosis Comments PAP TEST Today 03/08/2023 9:15 EDT Encounter for gynecological examination (general) (routine) without abnormal findings HPV DNA DETECTION WITH GENOTYPING, PCR Today 03/08/2023 9:15 EDT Encounter for gynecological examination (general) (routine) without abnormal findings documented in this encounter Results * HUMAN PAPILLOMAVIRUS (HPV) DETECTION-HIGH RISK TYPES (03/08/2023 9:15 EDT) HPV other High Risk types, PCR Negative Negative 04/05/2023 13:42 EDT [facility] Comment:No E6 or E7 mRNA is detected from HPV types 16,18,31,33,35,39,45,51,52,56,58,59,66, and 68 by yeast pumper mediated amplification. Papanicolaou smear specimen (specimen) CERVIX UTERI STRUCTURE / Unknown 03/08/2023 9:15 EDT 04/04/2023 16:50 EDT Jada Cheng MICROBIOLOGY - GENE RAL ORDERABLES [facility] [address] [place] [address] * PAP TEST (03/08/2023 9:15 EDT) Amendment Comment This report is amended to include High Risk HPV testing results. 04/05/2023 13:42 EDT [facility] Specimens A. Cervix and/or Endocervix 915, ThinPrep Imaging System with Manual Evaluation 04/05/2023 13:42 T [facility] Specimen Adequacy Satisfactory for Evaluation - transformation zone component present 04/05/2023 13:42 EDT [facility] General Categorization Negative for intraepithelial lesion or malignancy 04/05/2023 13:42 T [facility] Attestation . 04/05/2023 13:42 T [facility] Amendment electronically signed by Marley Dejesus CT(ASCP) on 04/05/2023 at 1342 at 1443 Clinical History SEE BELOW 04/05/20 13:42 T [facility] HPV The result for the Human Papillomavirus (HPV) Detection-High Risk Types is Negative. No E6 or E7 mRNA is detected from HPV types 16,18,31,33,35,39 ,45,51,52,56,58,5 9,66, and 68 by yeast pumper mediated amplification.Reebkah ting was performed on specimen [id number] and was resulted on 04/05/2023 1342 EDT by SONIA, LAB INSTRUMENT RESULTS IN 04/05/2023 13:42 EDT [facility] Performing Lab [facility] 04/05/2023 13:42 T [facility] Scanned Images 04/05/2023 13:42 EDT [facility] Papanicolaou smear specimen (specimen) CERVIX UTERI STRUCTURE / Unknown 03/08/2023 9:15 EDT 03/15/2023 15:57 EDT Jada Cheng PATHOLOGY ORDERABLE S [facility] [address] [place] [address] documented in this encounter Visit Diagnoses Diagnosis Encounter for gynecological examination (general) (routine) without abnormal findings documented in this encounter Care Teams Observer [employer] Relationship Specialty Start Date End Date Jada Cheng [address] [place] [id number] PCP - General 04/09/22 documented as of this encounter
--- OUTSIDE RECORDS SUMMARY | 2024-04-16 21:55 | XMS_ITS | Encounter Summary ---
Author Organization [facility] Address [address] [place] [address] Care Team Providers Care [employer] Teacher Name Role Phone YisselJoon Jada Primary Care Provider [phone] Encounter Details Date Type Department Care Team (Late st Contact Info) Description 03/09/2023 Lab Requisition [facility] Pathology & Laboratory Medicine - [address] [phone] Outr Resulting Lab, Provider Social History Tobacco [...] Procedure Name Priority Date/Time Associated Diagnosis Comments HIV 1/2 ANTIGEN AND ANTIBODY, 4TH GENERATION Routine 03/08/2023 9:10 EDT documented in this encounter Results * HIV 1/2 ANTIGEN AND ANTIBODY, 4TH GENERATION (03/08/2023 9:10 EDT) HIV 1 and 2 Antibody/p24 Antigen, 4th Generation Negative Negative 03/11/2023 12:05 EDT [facility] Comment:If acute HIV-1 infec tion is suspected in a high risk patient, submit plasma specimen for HIV-1 RNA quantitation test. Blood VENOUS BLOOD / Unknown 03/08/2023 9:10 EDT 03/09/2023 21:26 EDT Narrative [facility] - 03/11/2023 12:05 EDT Fourth Generation assay performed on the Siemens Centaur XPT. Provider Outr Resulting Lab IMMUNOLOGY A ND SEROLOGY ORDERABLES [facility] [address] [place] [address] documented in this encounter Visit Diagnoses Not on filedocumented in this encounter Care Teams Intermediate [employer] Teacher Relationship Specialty Start Date End Date Jada Cheng [address] [place] [id number] PCP - General 04/09/22 documented as of this encounter
[2024-04-16 22:18] LABS: ALT 46 U/L (14-59); AST 29 U/L (15-37); Albumin 4.2 g/dL (3.4-5.0); Alkaline Phosphatase 71 U/L (46-116); Anion Gap 11.9 mmol/L (3-11); BUN 16 mg/dL (7-18); Bilirubin, Total 0.31 mg/dL (0.2-1.0); CO2 26.1 mmol/L (21.0-32.0); CREATININE 0.8 mg/dL (0.55-1.02); Calcium 9.5 mg/dL (8.5-10.1); Chloride 102 mmol/L (98-107); Cholesterol 223 mg/dL (<200); Glucose 99 mg/dL (74-106); HDL Cholesterol 44 mg/dL (40-60); Magnesium 2.2 mg/dL (1.8-2.4); Sodium 140 mmol/L (136-145); TSH (W/Ref FT4) 1.21 uIU/mL (0.36-3.74); Total Protein 7.8 g/dL (6.4-8.2); Triglyceride 537 mg/dL (<150); Vitamin D 25 Total 19.2 ng/mL (30-100)
[2024-04-16 22:31] LABS: LDL CHOLESTEROL 113 mg/dL (<100)
== END 2024-04-16 21:54 | disposition home or self-care (01) ==
LOC: NCHCN 21:53
PROVIDERS: PCP Nurse Practitioner Family; Visit Provider Nurse Practitioner Family
DX: Z00.00 Encounter for general adult medical examination without abnormal findings (principal); R73.03 Prediabetes; I10 Essential (primary) hypertension; E78.2 Mixed hyperlipidemia; E55.9 Vitamin D deficiency, unspecified; K21.9 Gastro-esophageal reflux disease without esophagitis
CPT/HCPCS: 80053; 80061; 82306; 83721; 83036; 83735; 84443

== ENCOUNTER 2024-06-17 00:40 | Outpatient (CLI) | payer OTHER, SELFPAY ==
--- NOTE | 2024-06-17 12:38 | DI.MAMMO_ITS ---
Exam(s) MAMMO SCREENING EXAM: MAMMO SCREENING CLINICAL HISTORY: SCREENING, Z12.31. TECHNIQUE: Bilateral full field digital CC and MLO mammographic images were obtained with 3D tomosyn thesis and utilizing computer aided detection (CAD). COMPARISON: Prior mammograms were reviewed. FINDINGS: There has been no significant change in the appearance and distribution of the fibroglandular tissue. There are no new spiculated masses nor malignant appearing microcalcification groups. There is no significant architectural distortion nor skin thickening-retraction. IMPRESSION: No radiographic evidence of malignancy. BI-RADS Category 1 - Negative Breast Density - Category B - Scattered areas of fibroglandular density Breast density Category C or D implies that the patient has dense breast tissue. Dense breast tissue can make it harder to find cancer on a mammogram. Dense breast tissue is also associated with an incr eased risk of breast cancer. This information about the result of the mammogram report was provided to the patient to raise their awareness. Use this report when you speak with the patient about their risks for breast cancer, which includes their family history. At that time, you may recommend additional screening tests (Ultrasoun d or MRI) as these tests may add significant information. A negative radiographic report should not delay biopsy if a dominant or clinically suspicious mass is present. Up to ten percent of cancers are not identified on mammography. A negative report may reinforce clinical impression. Adenosis and dense breasts may obscure an underlying neoplasm. False positive reports average 6 to 10%. Patient will receive a letter notifying them of these results.
== END 2024-06-17 01:00 ==
LOC: DI 00:40
PROVIDERS: PCP Nurse Practitioner Family; Visit Provider Nurse Practitioner Family
DX: Z12.31 Encounter for screening mammogram for malignant neoplasm of breast (principal)
CPT/HCPCS: 77063; 77067

== ENCOUNTER 2024-08-25 10:36 | Outpatient (CLI) | payer OTHER, SELFPAY ==
--- NOTE | 2024-08-25 09:45 | DI.MRI_ITS ---
Exam(s) MR UPPER JOINT RT WO EXAM: MR UPPER JOINT RT WO CLINICAL HISTORY: R SHOULDER INJURY,rt rotator cuff tear, m75.101. TECHNIQUE: Multiplanar multisequence MRI was performed. COMPARISON: CR XR SHOULDER MIN 2V RT from 07/25/2024 FINDINGS: BONES: There is no fracture or contusion pattern. JOINTS: Moderate degenerative changes are seen at the acromioclavicular joint. There is mild superio r subluxation of the humeral head relative to the glenoid. TENDONS: Supraspinatus: There is a complete tear of the supraspinatus tendon at its midpoint. There is a gap of almost 1.2 cm between the tendon ends. Infraspinatus: There is a tear of the infraspinatus tendon at its insertion site onto the greater tub erosity superiorly. Subscapularis: Unremarkable. Teres Minor: Unremarkable. Biceps and [place]: Unremarkable. MUSCLES: Unremarkable. GLENOID LABRUM: Unremarkable on this noncontrast examination. SOFT TISSUES: Unremarkable. LIGAMENTS: Unremarkable. OTHER: There is fluid in the subacromial subdeltoid bursa consistent with a rotator cuff tear. IMPRESSION: 1. Complete tear of the supraspinatus tendon with retraction and a gap of 1.2 cm. 2. Full-thickness tear of the infraspinatus tendon at its insertion site onto the greater tuberosity. 3. Degenerative changes seen at the acromioclavicular joint. 4. Mild superior subluxation of the humeral head relative to the glenoid. DATA REPOSITORY:
== END 2024-08-25 10:56 ==
LOC: DI 10:37
PROVIDERS: PCP Nurse Practitioner Family; Visit Provider Student in an Organized Health Care Education/Training Program
DX: M75.121 Complete rotator cuff tear or rupture of right shoulder, not specified as traumatic (principal)
CPT/HCPCS: 73221

== ENCOUNTER 2024-09-04 05:54 | Day surgery (SDC) | payer OTHER, SELFPAY ==
[2024-09-04 06:15] VITALS: BP 131/69; PULSE 69; RESP 16; TEMP 36.5; O2SAT 98
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
[2024-09-04] MEDS: Celecoxib 200 MG CAP 400 MG PO (06:29)
[2024-09-04] MEDS: Acetaminophen 500 MG TAB 1000 MG PO (06:29)
[2024-09-04] MEDS: Lactated Ringers 1,000 ML 80 ML IV (06:29)
[2024-09-04 07:11] VITALS: BMI 49.1
--- NOTE | 2024-09-04 07:17 | W.PREOPHP ---
Assessment and Plan Assessment and plan (1) Left carpal tunnel syndrome: Status: Acute Assessment and plan: Arti is a 54-year-old female who has left carpal tunnel syndrome. She is here today for carpal tunnel release. Once again, I discussed the technical details of carpal tunnel release and that I perform an endoscopic release, but would make a larger, open, incision if necessary for visualization. I discussed the risks of the procedure to include, but not limited to, bleeding, infection, palmar pain, stiffness, damage to nerves, damage to vessels, damage to tendons, weakness, recurrence, and incomplete release. Given these risks, rAti desires to proceed. History of Present Illness History of Present Illness Chief Complaint: Left carpal tunnel syndrome Narrative: [place] is a 54-year-old female who has known carpal tunnel syndrome about the left side. She had a previous right carpal tunnel release some years ago with good results. She is here today for the left carpal tunnel release. Please see the previous office note for complete detailed history regarding the left wrist. She continues have numbness and tingling and pain about the left hand, median nerve distribution. She did have a fall at work which resulted in a complex rotator cuff tear about the right shoulder for which she is seeing Dr. Mackey. Review of Systems All systems reviewed & are unremarkable except as noted in HPI and below PFSH All Active Problems Right rotator cuff tear (Acute 07/25/24) Left carpal tunnel syndrome (Acute) Tubular adenoma (Acute) Screening for colon cancer (Acute) Hypertension (Chronic) GERD (gastroesophageal reflux disease) (Chronic) Diastasis recti (Acute) History of endometrial biopsy (Acute) 04/2022 Postmenopausal bleeding (Acute) 2021. 2 episodes after 1 year of amenorrhea. 02/2022 normal pelvic ultrasound. ES 3-4 mm. 04/10/2022 endometrial biopsy: Normal inactive endometrium. No further testing required Hyperlipemia (Acute) Medical History Tobacco use Inguinal pain Surgical History History of carpal tunnel surgery of right wrist History of colonoscopy with polypectomy (~02/2023) History of loop electrical excision procedure (LEEP) (~2002) Social History Smoking/Tobacco Use Status: Current every day Tobacco Type: cigarettes Smoking packs per day: 0.5 Smoking cigarettes per day: 10.0 Smoking risk assessment performed?: Yes Alcohol Intake: current Alcohol Intake frequency: holidays/special occasions only Drug use: Never Substance use type: does not use Housing: house Do you feel safe at home: Yes Do you feel safe in your relationship?: Yes History History 4 Para 1 Hx # Term Pregnancies 1 Multiple births Hx # Pregnancies Ectopic pregnancies AB induced Hx Number of Living Children 1 AB spontaneous Meds Allergies and Home Medications Allergies Allergy/AdvReac Type Severity Reaction Status Date / Time metronidazole (From Flagyl) Allergy Intermediate Hives Verified 09/04/24 06:20 Home Medications ?Medication ?Instructions ?Recorded ?Confirmed ?Type lisinopril 20 1 tab PO DAILY #30 tabs 11/25/21 09/04/24 Rx mg-hydrochlorothiazide 25 mg tablet rosuvastatin 5 mg tablet 10 mg PO HS 07/13/24 09/04/24 History ibuprofen 400 mg tablet 400 mg PO Q6H 08/11/24 09/04/24 History Exam Const General: cooperative, comfortable and no acute distress Nutritional Appearance: obese morbidly obese Resp Effort & Inspection: normal respiratory effort Auscultation: clear to auscultation bilaterally Cardio Rate: regular rate Rhythm: regular rhythm Results Last Vital Signs Temp 36.5 C 09/04/24 06:15 Pulse 69 09/04/24 06:15 Resp 16 09/04/24 06:15 BP 131/69 09/04/24 06:15 Pulse Ox 98 09/04/24 06:15
--- NOTE | 2024-09-04 07:20 | PDOC.DSDIS_ITS ---
Date of service: 09/04/24 Discharge Plan Disposition Patient Disposition: Home Discharge Details Reason For Visit: Left carpal tunnel syndrome Attending Provider: Hemanth Mathew Primary Care Provider: Jada Cheng Home Meds and New Rx's Prescriptions: New hydrocodone-acetaminophen 5-325 mg tablet 1 tab PO Q6H PRN (Reason: pain) Qty: 8 0RF acetaminophen 500 mg tablet 1,000 mg PO Q8H PRN (Reason: pain) Qty: 60 3RF ibuprofen 600 mg tablet 600 mg PO TID PRN (Reason: pain) Qty: 90 3RF Continued lisinopril-hydrochlorothiazide 20-25 mg tablet 1 tab PO DAILY Qty: 30 0RF Rx Instructions: Take 1 tab daily rosuvastatin 5 mg tablet 10 mg PO HS Discontinued ibuprofen 400 mg tablet 400 mg PO Q6H Discharge Instructions Stand Alone Forms: Priyanka Blackburn Tunnel Release Referrals: Hemanth Mathew MD [ [facility] STAFF PHYSICIAN] - Activity:: Elevate Remove Dressings/Wound Care:: 48 hours Shower/Bathe:: 48 hours Diet:: As Tolerated Discharge Orders Discharge Orders: Discharge Order (Routine); Ordered 09/04/24 Ordered By: Hemanth Mathew DS: Diagnosis Discharge Diagnosis (1) Left carpal tunnel syndrome: Status: Acute
[2024-09-04] MEDS: ceFAZolin 3,000 MG in Normal Saline 100 ML 200 MG IV (07:30)
[2024-09-04] MEDS: Lidocaine 1% Multi-Dose W/EPI 1/100,000 50 ML VIAL (07:42)
--- NOTE | 2024-09-04 07:50 | W.PM.OP ---
Operative Note Operative Note PRE-OP DIAGNOSIS: Left Carpal Tunnel Syndrome POST-OP DIAGNOSIS: same PROCEDURE: Left Endoscopic Carpal Tunnel Release SURGEON: Hemanth Mathew ANESTHESIA TYPE: General:No Airway Refer to Anesthesia Record ESTIMATED BLOOD LOSS: 0 PATHOLOGY: none sent TOURNIQUET TIME: 6 COMPLICATIONS: None Patient was transported to: same day Patient's condition: stable Indications: I have seen Sam in clinic for symptoms of carpal tunnel syndrome. The numbness, tingling, and pain limited function. Clinical exam findings with nerve conduction tests confirmed the diagnosis of carpal tunnel syndrome. Nonoperative measures such as bracing, time, activity modifications had been tried but disability and pain persisted. I discussed carpal tunnel release with the patient. I reviewed the risks of the procedure to include, but not limited to, bleeding, infection, pain, stiffness, incomplete release, damage to nerves or vessels, persistent numbness, recurrence. Despite these risks, the patient elected to proceed. Findings: There was tightened carpal tunnel. This was dilated and released successfully with the endoscopic with increased space within the tunnel. The antebrachial fascia was released proximally freeing the median nerve at the wrist. Procedure Description: Arti was greeted in the preoperative holding area where the correct side was identified and marked. The consent was reviewed with the patient and signed. The history and physical was updated. All questions were answered. She was taken back to the operating room. The patient was placed into the supine position on the operating room table with the left arm on an arm board. A nonsterile tourniquet was placed high onto the arm. All bony prominences were well padded. Prophylactic antibiotics in the form of Cefazolin were administered. The left arm was then prepped with Chloraprep and draped in a standard fashion with stockinette and extremity drape. A timeout to confirm correct identity, side and site, procedure, allergies, anesthesia, and medical concerns was performed. The surgical site was marked in the volar wrist creases in line with the radial border of the fourth ray. This area was anesthetized with approximately 6cc of 1% Lidocaine. The limb was then exsanguinated with an Esmarch. The skin was incised with a 15 blade, approximately 1cm. The skin only was cut and the deeper tissue was dissected bluntly with a tenotomy scissor, avoiding passing nerve and venous structures. The fascia was penetrated and opened bluntly. A two-prong skin hook was placed under this proximal fascial edge. A series of hamate finders were used to identify and dilate the carpal tunnel. Synovial elevator was used to free synovial attachments to the underside of the transverse carpal ligament. My thumb was kept in the palm to sharla the distal extent of the carpal tunnel and correctly position the hand. The Microaire endoscope was inserted without difficulty and without resistance. Excellent visualization showed horizontally running fibers of the transverse carpal ligament (TCL). The distal extent of the TCL was visualized and the end of the scope palpated with the thumb. The blade was elevated and withdrawn from distal to proximal. The TCL was split into two flaps. The endoscope was reinserted to confirm complete release and any remnant ligament was incised. The scope was withdrawn and the proximal aspect of the carpal tunnel was grossly inspected and appeared release with the median nerve visible. The antebrachial fascia at the level of the wrist was then freed from the overlying skin and then the underlying median nerve with blunt dissection. This was transected longitudinally for about 3cm proximal to the wrist incision. The wound was then irrigated with easy flow of irrigant distally and proximally. The incision was closed with a single 4-0 Nylon suture. The wound was dressed with Xeroform, Gauze, Kerlix and Jose. The tourniquet was deflated with the initial dressing and held with some pressure. Blood flow returned easily to all digits with capillary refill less than 2 seconds. The patient tolerated the procedure well and was returned to the Same Day Surgery area in a stable condition suffering no known complication. Date of Procedure: 09/04/24
[2024-09-04 07:54] VITALS: BP 109/50; PULSE 64; RESP 16; TEMP 36.3; O2SAT 96
--- NOTE | 2024-09-04 08:20 | W.ANESPOSTOP ---
Postoperative Evaluation Date, Time and Location Date Performed: 09/04/24 Time Performed: 08:20 Patient Location: Day Surgery Unit Vital Signs Most Recent Imported Vital Signs: Most Recent Vital Signs Temp Pulse Resp BP Pulse Ox 36.3 C L 64 16 109/50 L 96 09/04/24 07:54 09/04/24 07:54 09/04/24 07:54 09/04/24 07:54 09/04/24 07:54 Pain Score Most Recent Pain Score: Most Recent Pain Score Pain Level 2 09/04/24 06:15 Assessment Mental Status: Awake (Alert & Oriented to Patient Baseline) Airway and Respiratory Function: Patent airway with normal (patient baseline) respiratory exam Cardiovascular Function: Hemodynamically Stable Hydration Status: Adequately Hydrated Nausea & Vomiting: No Nausea or Vomiting Pain: Pt. Denies Any Pain Peripheral Nerve Block: Patient did not receive a nerve block
[2024-09-04 08:22] VITALS: BP 105/49; PULSE 60; RESP 17; TEMP 36.6; O2SAT 97
== END 2024-09-04 08:32 | disposition home or self-care (01) ==
PROVIDERS: PCP Nurse Practitioner Family; Visit Provider Student in an Organized Health Care Education/Training Program
PROC: 01N54ZZ Release Median Nerve, Percutaneous Endoscopic Approach (ICD-10-PCS; CPT 29848; principal; 2024-09-04 07:30)
DX: G56.02 Carpal tunnel syndrome, left upper limb (principal); I10 Essential (primary) hypertension
CPT/HCPCS: 29848; J0690; J2004; J2704

== ENCOUNTER 2024-10-12 02:14 | Outpatient (CLI) | payer OTHER, SELFPAY ==
[2024-10-16 01:50] LABS: Anabasine <2.0 ng/mL (<2.0); Cotinine <5.0 ng/mL (<5.0); Nicotine <5.0 ng/mL (<5.0); Nornicotine <2.0 ng/mL (<2.0)
== END 2024-10-12 02:15 | disposition home or self-care (01) ==
PROVIDERS: PCP Nurse Practitioner Family; Visit Provider Student in an Organized Health Care Education/Training Program
DX: M75.101 Unspecified rotator cuff tear or rupture of right shoulder, not specified as traumatic (principal)
CPT/HCPCS: 36415; 80323; 84439; 84443; 84480

== ENCOUNTER 2024-10-16 05:49 | Day surgery (SDC) | payer OTHER, SELFPAY ==
[2024-10-16] VITALS (54 sets, daily range): BP systolic 99–154; BP diastolic 44–77; PULSE 67–82; RESP 6–23; TEMP 36.3–36.6; O2SAT 90–100; BMI 50.3
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
[2024-10-16] MEDS: Lactated Ringers 1,000 ML 30 ML IV ×2 (07:00→11:20)
--- NOTE | 2024-10-16 07:09 | PDOC.DSDIS_ITS ---
Date of service: 10/16/24 Discharge Plan Disposition Patient Disposition: Home Condition: Stable Discharge Details Attending Provider: Regis Mackey Primary Care Provider: Jada Cheng Home Meds and New Rx's Prescriptions: New naproxen 250 mg tablet 250 - 500 mg PO BID PRN (Reason: moderate pain and swelling) Qty: 40 0RF oxycodone 5 mg tablet 5 - 10 mg PO .q4-6h MDD 30 mg PRN (Reason: severe pain) Qty: 18 0RF Continued lisinopril-hydrochlorothiazide 20-25 mg tablet 1 tab PO DAILY Qty: 30 0RF Rx Instructions: Take 1 tab daily rosuvastatin 5 mg tablet 10 mg PO HS Discontinued ibuprofen 600 mg tablet 600 mg PO TID PRN (Reason: pain) Qty: 90 3RF Patient Comments: Advil 400 mg Discharge Instructions Additional Instructions: Surgery: Right shoulder arthroscopy with massive rotator cuff repair (supraspinatus & infraspinatus), biceps transposition tenodesis, extensive debridement, and subacromial decompression 10/16/24 Activity: For 6 weeks, you should keep your arm at your side in a neutral position at all times except for physical therapy. Do not try to lift or raise your arm using your own muscles. You should use the sling whenever you are out of the house. At home it is best to remove the sling and rest the arm on a pillow at your side or support the operative side with your other hand. You may allow the arm to dangle at your side. A physical therapy prescription will be sent electronically to begin in about 3 weeks.CONSERVATIVE protocol. Prescriptions: Naproxen 250 mg take 1-2 every 12 hours with a meal as needed for moderate pain (do not use at same time as ibuprofen) Oxycodone 5 mg take 1-2 every 4-6 hours as needed for severe pain You may use szzz-mjs-grxyvic Tylenol (acetaminophen) as needed for mild pain. These pain medications may be taken all at once or in different combinations as needed. Also, recommend Colace (docusate) as a stool softener as surgery and pain medicine cause constipation. You may try jaej-pfs-uawfaem diphenhydramine (Benadryl) 25-50 mg nightly as a sleep aid Dressings: Remove shoulder bandage after 3 days. Leave the sticky Steri-Strips in place until they fall off or remove them after you shower. Cover the incisions with Band-Aids or leave them open to air. You may shower after 5 days. Follow-up: 10-[address] Mackey You may take off the leg compression stockings this evening at home. You may also leave them on a few days longer if you have a history of leg swelling or edema. Let us know right away if you develop any redness, drainage, fevers, chest pain, or trouble breathing. Do not drink alcohol or drive for at least 24 hours after anesthesia. Must use CPAP while recovering from anesthesia or using narcotics. Please call the office during business hours with any questions or concerns. Stand Alone Forms: Anesthesia Discharge Inst., Aditi.Nerve Block Instructions, Jenae Emery (DSU) Referrals: Regis Mackey MD [ [facility] STAFF PHYSICIAN] - 10/27/24 2:45 pm Discharge Orders Discharge Orders: Discharge Order (Routine); Ordered 10/16/24 Ordered By: Sherie Conklin DS: Diagnosis Discharge Diagnosis (1) Right rotator cuff tear: Status: Acute (2) SLAP lesion of right shoulder: Status: Acute (3) Bursitis of right shoulder: Status: Acute
--- NOTE | 2024-10-16 07:26 | ROE_ITS ---
Operative Note Operative Note PRE-OP DIAGNOSIS: Right: 1. Massive retracted rotator cuff tear 2. LHB tendinopathy 3. ACJ arthrosis 4. Impingement POST-OP DIAGNOSIS: same PROCEDURE: Right: 1. Massive rotator cuff repair, CPT# 29666. Modifier #22 increased procedural difficulty due to morbid obesity, BMI 50+, and substantially large rotator cuff tear with both factors increasing the amount of time for surgical planning, set up in the operating room, surgical time, more challenging surgical technique, increased number of anchors/implants, and more guarded recovery with increased frequency and prolonged duration of postoperative visits required. This inv olved repair of the supraspinatus and infraspinatus using anchors and sutures to reattach the rotator cuff back to the footprint of the greater tuberosity. 2. Arthroscopic biceps tenodesis, CPT# 52384. This involved arthroscopically suturing and reattaching the long head of the biceps tendon to the proximal humerus at the superior margin of the bicipital groove with a screw at the correct tension. 3. Extensive debridement, CPT# 61979. This involved using arthroscopic hand instruments, power instruments, and radiofrequency instruments to release the long head of the biceps tendon and debride areas of SLAP tearing, anterior and posterior labral tearing, global synovitis, and mild humeral head chondromalacia working the glenohumeral joint anteriorly, superiorly and posteriorly. 4. Subacromial decompression with partial acromioplasty, CPT# 37857. This involved using arthroscopic power instruments and a radiofrequency wand to complete a bursectomy and smooth the undersurface of the acromion. The photographer assistant was medically required in order to help assist in techniques above, which require positioning the arm, holding the arthroscope, and manipulating multiple instruments and sutures at the same time. This cannot be done without the help of an experienced photographer assistant. SURGEON: Regis Mackey FLIGHT OPERATIONS DISPATCH CLERK: Sherie Conklin ANESTHESIA TYPE: Local By Surgeon, General LMA/ETT and Primary Nerve Block Refer to Anesthesia Record ESTIMATED BLOOD LOSS: 10 PATHOLOGY: none sent COMPLICATIONS: None Patient was transported to: PACU Patient's condition: stable Implants: Arthrex: 4.75mm SwiveLocks x 3, 5.5mm SwiveLock x2 Indications: The patient was diagnosed with the above conditions and appropriately indicated for surgical intervention. Please see complete medical record for details. Findings: Exam under anesthesia: Full range of motion, no instability Glenohumeral joint: Anterior superior and posterior labral fraying redundancy and tearing especially at the biceps anchor with the biceps anchor stable to the remainder of the labrum and the biceps tendon otherwise uninvolved. Intact subscapularis. Mild glenohumeral chondromalacia. Significant global synovitis especially superiorly and rotator interval. Obvious full-thickness superior rotator cuff avoid. Subacromial space: Significant bursitis. Large complete full-thickness retracted supraspinatus rotator cuff tear somewhat delaminated thinned and limited tissue more anteriorly. Exposure of the biceps bicipital groove as the supraspinatus tear went over the transverse humeral ligament. Moderate infraspinatus involvement more posteriorly wrapping around the humeral head somewhat detached. Largely exposed majority greater tuberosity. Narrowing subacromial space. Procedure Description: In the operating room, general anesthesia was induced. Bilateral shoulders were examined. The patient was positioned in the beachchair position. All bony prominences were well-padded. Preoperative antibiotics were administered. The shoulder was prepped and draped in the usual sterile fashion. The correct patient, procedure, and side of the procedure were all verified prior to incision. Starting through the posterior portal a standard complete diagnostic arthroscopy was performed in this case owing to the morbid obesity starting in the subacromial space and redirecting to the glenohumeral joint including inspection of the long head of the biceps, anterior and superior labrum, subscapularis tendon, supraspinatus and infraspinatus tendons, and axillary recess. The glenoid and humeral head cartilage as well as the posterior labrum were inspected from an anterior viewing portal. Significant findings and interventions noted above. Starting through the posterior portal, the arthroscope was directed into the subacromial space. A lateral 50 yard line lateral portal was created. A combination of power instruments and a radiofrequency ablator were used to debride bursitis anteriorly, posteriorly, and laterally as well as expose and smooth bone spurring on the undersurface of the acromion. The coracoacromial ligament was partially released. The bursectomy was completed viewing laterally and working from posteriorly and the rotator cuff was thoroughly inspected with findings noted above. Given the massive anterior superior and posterior superior rotator cuff tear, decision was made to augment humeral head depression and soft tissue coverage of the anterior aspect of the greater tuberosity. The biceps was used using the Loop N Tack method with a SutureTape FiberLink cinched around and through the tendon. The biceps was maintained attached to superior labrum after debriding the SLAP tear to a stable margin. Starting anteriorly the medial row was established with three 4.75 mm SwiveLock anchors with nice spacing from the biceps, central, to the posterior infraspinatus. All medial anchors were loaded with fiber tapes and the anteriormost anchor contained a knotless mechanism and was also used to secure the biceps tendon complete a tenodesis at the superior aspect of the bicipital groove and anterior aspect of the greater tuberosity. The knotless mechanism was then shuttled around the biceps tendon back through the anchor eyelet mechanism and an additional security and strength of the biceps transposition type tenodesis. The posterior most anchor also was not less and a knotless repair suture used in a simple configuration to secure the delaminated under layers of the infraspinatus nicely over to the suture anchor. The fiber tapes were then shuttled in pairs using a FiberLink through the corresponding anterior central and posterior aspects of the rotator cuff tear. A single tape was retrieved from each medial anchor and arm position rotated and provisional r eduction done through the [employer] clear insert cannula to a lateral row anchor. Configuration looked look good with 2 lateral row anchors and was best considering a somewhat poor bone quality. The undersized punch was used for oversized 5.5 mm anchors laterally and the 3 tapes from each anchor were secured to an anterior and posterior lateral row. There was good reduction and compression of the rotator cuff across the large void with better tissue and coverage more centrally and posteriorly not unexpected. Rotator cuff is stable through probing and arm motion testing. The shoulder was drained of arthroscopic fluid. All portal sites were copiously irrigated. These incisions were closed using 3-0 Monocryl in a buried fashion and then covered with Mastisol, Steri-Strips, Xeroform, dry gauze, and ABDs. The dressings were covered and secured with Medipore tape. The operative extremity was placed into a sling for immobilization. The patient awoke from anesthesia without complication and was transferred to the recovery room in a stable condition. Date of Procedure: 10/16/24
[2024-10-16] MEDS: ceFAZolin 3,000 MG in Normal Saline 100 ML 200 MG IV (08:08)
[2024-10-16] MEDS: TRANEXAMIC ACID/SOD. CHL. 1,000 MG/100 ML BAG 600 MG IVPB (08:15)
[2024-10-16] MEDS: Bupivacaine 0.25% Pres-Free W/EPI 30 ML VIAL ×2 (08:43→10:12)
--- NOTE | 2024-10-16 08:58 | W.ANESNERVE ---
Nerve Block Single Injection Procedure Date and Time Date Performed: 10/16/24 Procedure Start: 07:20 Location Where Procedure Performed Procedure Location: Day Surgery Unit Reason Performed: Postoperative Analgesia Requesting Provider: Regis Mackey Timeout Performed Timeout Performed: Yes Monitoring Used ECG, Blood Pressure, SpO2 and See EMR for corresponding vital signs Sterility Sterility: Hand Hygiene, Surgical Cap, Surgical Mask, Sterile Gloves, Sterile Drape/Sheet, Sterile Gown and Chlorhexidine Sedation Given During Procedure Sedation Given (Indicate Dose Given): Versed IV Dose:: 1mg and Precedex IV Dose:: 8mcg Patient Mental Status Patient Mental Status: Sedate with meaningful communication Nerve Block 1st Nerve Block: Laterality: Right Block Type: Interscalene (Low Interscalene) Ultrasound Image Saved?: Yes Needle / Catheter Used: 80mm SonoPlex II Local Anesthetic Bolus (Indicate Dose Given): Lidocaine used for local infiltration of skin, Injected in 3-5ml increments after negative blood aspiration, Bupivacaine 0.25% Dose:: 10mL and Exparel Dose:: 10mL Additives (Indicate Dose Given): None Ultrasound: Sterile probe cover and gel used Nerve Stimulator: Supplement to Ultrasound use and No twitch or parasthesia noted < 0.5 mA Paresthesia: None Procedure Tolerated: No Complications Procedure Outcome: Successful Procedure Comment: 0.25% Bupivacaine utilized with exparel in effort to minimize motor blockade secondary to patient's elevated BMI. Dr. Mackey aware and will supplement intraop. Performed By: Rose Mariscal
[2024-10-16] MEDS: Normal Saline 10 ML VIAL IJ (10:40)
[2024-10-16] MEDS: HYDROmorphone 2 MG/ML SYR IVP ×3 (10:41→11:18)
[2024-10-16] MEDS: EPINEPHrine 10 MG/10 ML ML ×2 (10:52→10:53)
[2024-10-16] MEDS: fentaNYL 100 MCG/2 ML VIAL IVP (11:02)
[2024-10-16] MEDS: ePHEDrine 25 MG/5 ML Syringe IVP (11:32)
[2024-10-16] MEDS: oxyCODONE 5 MG TAB PO (12:29)
--- NOTE | 2024-10-16 14:37 | W.ANESPOSTOP ---
Postoperative Evaluation Date, Time and Location Date Performed: 10/16/24 Time Performed: 12:04 Patient Location: Day Surgery Unit Vital Signs Most Recent Imported Vital Signs: Most Recent Vital Signs Temp Pulse Resp BP Pulse Ox 36.3 C L 82 18 127/61 95 10/16/24 12:18 10/16/24 12:18 10/16/24 12:18 10/16/24 12:18 10/16/24 12:18 Pain Score Most Recent Pain Score: Most Recent Pain Score Pain Level 4 10/16/24 12:18 Assessment Mental Status: Awake (Alert & Oriented to Patient Baseline) Airway and Respiratory Function: Patent airway with normal (patient baseline) respiratory exam Cardiovascular Function: Hemodynamically Stable Hydration Status: Adequately Hydrated Nausea & Vomiting: No Nausea or Vomiting Pain: Pt. Denies Any Pain Peripheral Nerve Block: Regional nerve block not resolved at time of post operative discharge
== END 2024-10-16 13:38 | disposition home or self-care (01) ==
PROVIDERS: PCP Nurse Practitioner Family; Visit Provider Student in an Organized Health Care Education/Training Program
PROC: (CPT 29827; principal; 2024-10-16 07:30)
DX: M75.121 Complete rotator cuff tear or rupture of right shoulder, not specified as traumatic (principal); S43.431A Superior glenoid labrum lesion of right shoulder, initial encounter; M75.21 Bicipital tendinitis, right shoulder; I10 Essential (primary) hypertension; E66.01 Morbid (severe) obesity due to excess calories; M19.011 Primary osteoarthritis, right shoulder; X58.XXXA Exposure to other specified factors, initial encounter; M75.41 Impingement syndrome of right shoulder; Z68.43 Body mass index [BMI] 50.0-59.9, adult; M75.101 Unspecified rotator cuff tear or rupture of right shoulder, not specified as traumatic
CPT/HCPCS: 29827; 29828; 29823; 29826; 64415; J0131; J0665; J0666; J0690; J1100; J1171; J1885; J2003; J2250; J2371; J2405; J2598; J2704; J3010

== ENCOUNTER 2025-03-05 00:16 | Outpatient (CLI) | payer OTHER, SELFPAY ==
--- NOTE | 2025-03-05 07:30 | DI.MRI_ITS ---
Exam(s) MR UPPER JOINT RT WO EXAM: MR UPPER JOINT RT WO CLINICAL HISTORY: PERS. WEAKNESS 4 MOS POSTOP RTC REPAIR, BURSITIS RT SHOULDER, RT RTC. TECHNIQUE: Multiplanar multisequence MRI was performed. COMPARISON: CR XR SHOULDER MIN 2V RT from 07/25/2024 MR MR UPPER JOINT RT WO from 08/25/2024 FINDINGS: BONES: There is no fracture or contusion pattern. JOINTS: There are mild degenerative changes seen at the acromioclavicular joint. The glenohumeral joint is normal. There is a small amount of fluid seen in the glenohumeral joint. TENDONS: There are postsurgical changes of a rotator cuff repair. Supraspinatus: The supraspinatus tendon is intact. Infraspinatus: There is a focus of hyperintense signal on the T2 weighted images which may lie between the supraspinatus and infraspinatus tendons versus a partial tear of the infraspinatus tendon at the musculotendinous junction. (Series 6001, image 10). Subscapularis: Unremarkable. Teres Minor: Unremarkable. Biceps and [place]: There has been a biceps tenodesis. MUSCLES: There is mild fatty atrophy of the infraspinatus muscle. GLENOID LABRUM: There is some loss of volume in irregularity of the superior labrum particularly anteriorly which may be secondary to fraying or degeneration. SOFT TISSUES: Unremarkable. LIGAMENTS: Unremarkable. OTHER: There is fluid present in the subacromial subdeltoid bursa. IMPRESSION: 1. Postsurgical changes with repair of the infraspinatus and supraspinatus tendon tear is and a biceps tenodesis. 2. There is a focus of hyperintense signal seen near the musculotendinous junction of the infraspinatus tendon. A small partial tear should be considered. 3. Mild fatty atrophy of the infraspinatus muscle. 4. There appears to be some volume loss seen in the superior labrum which may be due to fraying or degeneration. 5. Degenerative changes seen at the acromioclavicular joint. 6. Fluid seen in the subacromial subdeltoid bursa which may represent a bursitis. DATA REPOSITORY:
== END 2025-03-05 00:36 ==
LOC: DI 00:17
PROVIDERS: PCP Nurse Practitioner Family; Visit Provider Student in an Organized Health Care Education/Training Program
DX: M75.121 Complete rotator cuff tear or rupture of right shoulder, not specified as traumatic; Z98.890 Other specified postprocedural states
CPT/HCPCS: 73221

== ENCOUNTER 2025-03-05 00:18 | Outpatient (CLI) | payer OTHER, SELFPAY ==
--- NOTE | 2025-03-05 | DI.RAD_ITS ---
Exam(s) XR KNEE LT 3V AP,LAT,ANNE-MARIE EXAM: XR KNEE LT 3V AP,LAT,ANNE-MARIE CLINICAL HISTORY: ACUTE PAIN LT KNEE, M25.562. TECHNIQUE: 2D digital imaging was performed of the left knee. Three images were obtained. AP, lateral and PA tunnel views were obtained. COMPARISON: There are no priors for comparison. FINDINGS: BONES: No acute fracture is present. No bony destructive lesion is seen. JOINTS: There is mild medial subluxation of the femur relative to the tibia. There is mild narrowing of the medial femoral tibial joint. Osteophytes are seen both medially and laterally at the femoral tibial joint. No significant joint effusion is seen. SOFT TISSUE: Normal. IMPRESSION: Osteoarthritis of the left knee. DATA REPOSITORY: RADIATION DOSE DELIVERED:
== END 2025-03-05 00:38 ==
LOC: DI 00:18
PROVIDERS: PCP Nurse Practitioner Family; Visit Provider Nurse Practitioner Family
DX: Z98.890 Other specified postprocedural states (principal); M75.121 Complete rotator cuff tear or rupture of right shoulder, not specified as traumatic
CPT/HCPCS: 73562

== ENCOUNTER 2025-06-21 20:35 | Outpatient (REF) | payer OTHER, SELFPAY ==
[2025-06-21 20:57] LABS: HCT 38.9 % (36.0-46.0); HGB 12.5 g/dL (11.2-15.7); MCH 28.2 pg (27.0-33.0); MCHC 32.1 % (32.0-36.0); MCV 88 fL (80-95); MPV 10.4 fL (8.0-11.0); Platelet Count 360 10^3/uL (130-400); RBC 4.44 10^6/uL (3.93-5.22); RDW 13.5 % (11.7-14.6); RDW-SD 43.2 fL; WBC 9.94 10^3/uL (4.4-10.8)
[2025-06-21 21:46] LABS: Hemoglobin A1C 6.4 % (<5.7)
[2025-06-21 21:50] LABS: ALT 35 U/L (14-59); AST 22 U/L (15-37); Albumin 4.2 g/dL (3.4-5.0); Alkaline Phosphatase 75 U/L (46-116); Anion Gap 12.9 mmol/L (3-11); BUN 21 mg/dL (7-18); Bilirubin, Total 0.3 mg/dL (0.2-1.0); CO2 25.1 mmol/L (21.0-32.0); Calcium 9.0 mg/dL (8.5-10.1); Chloride 100 mmol/L (98-107); Estimated GFR 86.96 (mL/min/1.73m2); Glucose 90 mg/dL (74-106); Potassium 4.3 mmol/L (3.5-5.1); Sodium 138 mmol/L (136-145); Total Protein 8.1 g/dL (6.4-8.2)
[2025-06-22 08:55] LABS: Vitamin D 25 Total 29 ng/mL (30-100)
== END 2025-06-21 20:36 | disposition home or self-care (01) ==
LOC: NCHCN 20:35
PROVIDERS: PCP Nurse Practitioner Family; Visit Provider Nurse Practitioner Family
DX: Z00.00 Encounter for general adult medical examination without abnormal findings (principal); R73.03 Prediabetes; E55.9 Vitamin D deficiency, unspecified; K76.0 Fatty (change of) liver, not elsewhere classified
CPT/HCPCS: 80053; 82306; 85027; 82652; 83036

== ENCOUNTER 2025-06-30 01:32 | Outpatient (CLI) | payer OTHER, SELFPAY ==
--- NOTE | 2025-06-30 | DI.CTLCSR_ITS ---
Exam(s) CT CHEST LUNG CANCER SCREEN EXAM: CT CHEST LUNG CANCER SCREEN CLINICAL HISTORY: FORMER SMOKER, Z87.891,LUNG SCREENING TECHNIQUE: Imaging Protocol: Axial computed tomography images with coronal and sagittal reformatted images were created and reviewed. Low dose screening protocol. COMPARISON: CT CT CHEST LUNG CANCER SCREEN from 05/27/2024 FINDINGS: Tracheobronchial tree: No bronchiectasis or mucus plugging. Mediastinum and Miriam: No dominant adenopathy or fluid collection. Pulmonary parenchyma: No consolidation or dominant measurable mass. No visible emphysematous changes. No significant interstitial changes. Lung Nodules: None. Pleura: No effusion. No pneumothorax. Heart: The heart is not dilated. No coronary artery calcifications are seen. No pericardial effusion. Aorta: Thoracic aorta non-dilated. Upper abdomen: Unremarkable. Bones: Degenerative disc changes and mild scoliosis. Soft Tissues: Unremarkable. IMPRESSION: No suspicious pulmonary nodules. Lung RADS Cat 1 - Negative: No nodules and definitely benign nodules Lung-RADS 1.0 CATEGORIES: Category 0 - Prior chest CT exam(s) being located for comparison. Category 1 - Annual screening in 12 months. No nodules or definitely benign nodules. Category 2 - Annual screening in 12 months. Benign appearance. Nodules with low likelihood of becoming active cancer. Category 3 - 6-month follow-up. Probably benign. Short-term follow-up suggested. Nodules with low likelihood of becoming active cancer. Category 4A - 3-month follow-up and CT/PET if >8 mm in size. Suspicious finding. Findings which require additional testing. Category 4B - Findings which require additional testing and tissue sampling. Category 4X - Category 3 or 4 nodules with additional features or imaging findings that increases the suspicion of malignancy. Modifier S- Potentially clinically significant findings (non lung cancer) RADIATION DOSE DELIVERED: Total DLP DATA REPOSITORY: All CT scans at this facility are submitted to the National Radiology Data Registry (NRDR) Dose Index Registry (DIR) with the [employer] (ACR). RADIATION OPTIMIZATION: All CT scans at this facility use at least one of these dose optimization techniques: automated exposure control; mA and/or kV adjustment per patient size (includes targeted exams where dose is matched to clinical indication); or iterative reconstruction.
--- NOTE | 2025-06-30 | DI.MAMMO_ITS ---
Exam(s) MAMMO SCREENING EXAM: MAMMO SCREENING CLINICAL HISTORY: SCREENING, Z12.31 TECHNIQUE: Bilateral full field digital CC and MLO mammographic images were obtained with 3D tomosynthesis and utilizing computer aided detection (CAD). COMPARISON: Comparison is made with prior examinations. FINDINGS: Masses/Architectural Distortion: No suspicious masses or areas of architectural distortion are present. Microcalcifications: No suspicious pleomorphic-type are seen. Skin Thickening/Nipple Retraction: None. IMPRESSION: 1. No significant interval change with no specific features of malignancy noted. 2. Unless there is more urgent need, screening mammography is recommended, as per [employer] [employer] guidelines. BI-RADS Category 1 - Negative Breast Density - Category B - There are scattered areas of fibroglandular density. Breast density Category C or D implies that the patient has dense breast tissue. Dense breast tissue can make it harder to find cancer on a mammogram. Dense breast tissue is also associated with an increased risk of breast cancer. This information about the result of the mammogram report was provided to the patient to raise their awareness. Use this report when you speak with the patient about their risks for breast cancer, which includes their family history. At that time, you may recommend additional screening tests (Ultrasound or MRI) as these tests may add significant information. A negative radiographic report should not delay biopsy if a dominant or clinically suspicious mass is present. Up to ten percent of cancers are not identified on mammography. A negative report may reinforce clinical impression. Adenosis and dense breasts may obscure an underlying neoplasm. False positive reports average 6 to 10%. Patient will receive a letter notifying them of these results.
== END 2025-06-30 01:52 ==
LOC: DI 01:32
PROVIDERS: PCP Nurse Practitioner Family; Visit Provider Nurse Practitioner Family
DX: Z12.31 Encounter for screening mammogram for malignant neoplasm of breast (principal)
CPT/HCPCS: 71271; 77063; 77067